=== PATIENT | male | born 1960 | race Caucasian/White ===

== ENCOUNTER → 2016-07-05 | Outpatient (CLI) | payer OTHER, MEDICARE, BC ==
[~2016-07-05] MED LIST: B COTAB3 PO; CARV6.25 PO; FISHOIL PO; LISIPOW PO; METFPOW8 PO; PRAV10 PO; VITA400C28 PO
[2016-07-05 12:06] LABS: AUTOMATED NEUTROPHIL # 4.8 TH/MM3 (1.8-7.7); BASOPHIL % 0.3 % (0.0-2.0); EOSINOPHIL # 0.1 TH/MM3 (0-0.4); EOSINOPHIL % 1.2 % (0.0-4.0); HEMATOCRIT 32.9 % (39.0-51.0); HEMO FLAGS DIFF FINAL; LYMPH % 22.7 % (9.0-44.0); LYMPHOCYTE # 1.6 TH/MM3 (1.0-4.8); MEAN CELL VOLUME 90.5 FL (80.0-100.0); MEAN CORPUSCULAR HEMOGLOBIN 31.2 PG (27.0-34.0); MEAN CORPUSCULAR HGB CONC 34.4 % (32.0-36.0); MONO % 7.7 % (0.0-8.0); NEUT % 68.1 % (16.0-70.0); PLATELET COUNT 238 TH/MM3 (150-450); RED BLOOD COUNT 3.64 MIL/MM3 (4.50-5.90); RED CELL DISTRIBUTION WIDTH 13.9 % (11.6-17.2); WHITE BLOOD COUNT 7.1 TH/MM3 (4.0-11.0)
[2016-07-05 12:19] LABS: BACTERIA, URINE RARE /hpf; BLOOD, URINE NEG (NEG); GLUCOSE,URINE NEG (NEG); KETONE, URINE NEG (NEG); MUCUS URINE FEW /lpf (OCC); NITRITE,URINE NEG (NEG); SQUAMOUS EPITHELIAL CELL URINE <1 /hpf (0-5); TRANSITIONAL EPI CELLS, URINE <1 /hpf; URINE COLOR YELLOW (YELLW/STRAW)
[2016-07-05 12:28] LABS: ANION GAP 9 MEQ/L (5-15); AST (GOT) 9 U/L (15-37); BICARBONATE 29.1 MEQ/L (21.0-32.0); BLOOD UREA NITROGEN 13 MG/DL (7-18); CHLORIDE 106 MEQ/L (98-107); GLOMERULAR FILTRATION RATE 73 ML/MIN (>89); GLUCOSE,FASTING 132 MG/DL (74-99); MAGNESIUM 1.4 MG/DL (1.5-2.5); POTASSIUM 3.4 MEQ/L (3.5-5.1); SODIUM (NA) 144 MEQ/L (136-145); URIC ACID 5.4 MG/DL (2.6-7.2)
[2016-07-05 12:31] LABS: MICRO ALBUMIN RANDOM URINE RAW 81.6 MG/L (0.0-30.0)
[2016-07-05 12:54] LABS: ALKALINE PHOSPHATASE 66 U/L (45-117); ALT (GPT) 15 U/L (12-78); FERRITIN 6 NG/ML (26-388); HDL CHOLESTEROL 38.1 MG/DL (40.0-60.0); LDL CHOLESTEROL 37 MG/DL (0-99); TOTAL BILIRUBIN ADULT 0.6 MG/DL (0.2-1.0); TRANSFERRIN IRON PROFILE 319 MG/DL (200-360)
[2016-07-05 13:03] LABS: CREATINE KINASE 51 U/L (39-308)
[2016-07-06 12:59] LABS: HEMOGLOBIN A1a 1.1 %; HEMOGLOBIN A1b 0.9 %; HEMOGLOBIN Ao 84.9 %; HEMOGLOBIN F 1.1 %; HEMOGLOBIN LA1C 2.1 %; HEMOGLOBIN P3 3.6 %
== END ==
LOC: CLAB 11:27
PROVIDERS: ATTEND Family Medicine
DX: E78.2 Mixed hyperlipidemia (principal); E52 Niacin deficiency [pellagra]; D64.9 Anemia, unspecified; E53.8 Deficiency of other specified B group vitamins; N40.1 Benign prostatic hyperplasia with lower urinary tract symptoms; I10 Essential (primary) hypertension; E55.9 Vitamin D deficiency, unspecified; E11.40 Type 2 diabetes mellitus with diabetic neuropathy, unspecified; K21.0 Gastro-esophageal reflux disease with esophagitis; J44.9 Chronic obstructive pulmonary disease, unspecified; R94.5 Abnormal results of liver function studies
CPT/HCPCS: 36415; 80053; 80061; 81001; 82043; 82306; 82550; 82607; 82728; 82746; 83036; 83540; 83550; 83735; 84153; 84402; 84403; 84443; 84550; 85025; 87086

== ENCOUNTER → 2016-09-22 | Outpatient (CLI) | payer OTHER, MEDICARE, BC | LOC: CLAB 10:06 | PROVIDERS: ATTEND Urology | DX: R97.20 Elevated prostate specific antigen [PSA] (principal) | CPT/HCPCS: 36415; 84153 ==

== ENCOUNTER → 2016-12-30 | Outpatient (CLI) | payer OTHER, MEDICARE, BC ==
[2016-12-30 11:02] LABS: BLOOD, URINE NEG (NEG); GLUCOSE,URINE NEG (NEG); KETONE, URINE NEG (NEG); MUCUS URINE FEW /lpf (OCC); NITRITE,URINE NEG (NEG); PH, URINE 5.5 (5.0-8.5); SQUAMOUS EPITHELIAL CELL URINE <1 /hpf (0-5); URINE COLOR YELLOW (YELLW/STRAW)
[2016-12-30 11:02] LABS: AUTOMATED NEUTROPHIL # 5.7 TH/MM3 (1.8-7.7); BASOPHIL % 0.3 % (0.0-2.0); EOSINOPHIL # 0.1 TH/MM3 (0-0.4); EOSINOPHIL % 0.9 % (0.0-4.0); HEMATOCRIT 35.7 % (39.0-51.0); HEMO FLAGS DIFF FINAL; LYMPH % 21.4 % (9.0-44.0); LYMPHOCYTE # 1.7 TH/MM3 (1.0-4.8); MEAN CORPUSCULAR HEMOGLOBIN 32.3 PG (27.0-34.0); MEAN CORPUSCULAR HGB CONC 34.8 % (32.0-36.0); MONO % 7.3 % (0.0-8.0); NEUT % 70.1 % (16.0-70.0); PLATELET COUNT 225 TH/MM3 (150-450); RED BLOOD COUNT 3.84 MIL/MM3 (4.50-5.90); RED CELL DISTRIBUTION WIDTH 13.8 % (11.6-17.2)
[2016-12-30 11:16] LABS: ANION GAP 9 MEQ/L (5-15); AST (GOT) 12 U/L (15-37); BICARBONATE 24.5 MEQ/L (21.0-32.0); BLOOD UREA NITROGEN 13 MG/DL (7-18); CHLORIDE 108 MEQ/L (98-107); GLOMERULAR FILTRATION RATE 85 ML/MIN (>89); GLUCOSE,FASTING 128 MG/DL (74-99); MAGNESIUM 1.3 MG/DL (1.5-2.5); POTASSIUM 3.7 MEQ/L (3.5-5.1); SODIUM (NA) 141 MEQ/L (136-145); URIC ACID 6.1 MG/DL (2.6-7.2)
[2016-12-30 11:45] LABS: ALKALINE PHOSPHATASE 76 U/L (45-117); ALT (GPT) 18 U/L (12-78); CREATINE KINASE 71 U/L (39-308); FERRITIN 42 NG/ML (26-388); HDL CHOLESTEROL 34.1 MG/DL (40.0-60.0); LDL CHOLESTEROL 44 MG/DL (0-99); TOTAL BILIRUBIN ADULT 0.8 MG/DL (0.2-1.0); TRANSFERRIN IRON PROFILE 238 MG/DL (200-360)
[2016-12-30 18:12] LABS: HEMOGLOBIN A1a 1.1 %; HEMOGLOBIN Ao 84.3 %; HEMOGLOBIN F 1.2 %; HEMOGLOBIN LA1C 2.1 %; HEMOGLOBIN P3 3.7 %
== END ==
LOC: CLAB 10:04
PROVIDERS: ATTEND Family Medicine
DX: J44.9 Chronic obstructive pulmonary disease, unspecified (principal); D64.9 Anemia, unspecified; E53.8 Deficiency of other specified B group vitamins; N40.1 Benign prostatic hyperplasia with lower urinary tract symptoms; I10 Essential (primary) hypertension; E55.9 Vitamin D deficiency, unspecified; E78.2 Mixed hyperlipidemia; E11.40 Type 2 diabetes mellitus with diabetic neuropathy, unspecified; K21.0 Gastro-esophageal reflux disease with esophagitis; R94.5 Abnormal results of liver function studies
CPT/HCPCS: 36415; 80053; 80061; 81001; 82043; 82306; 82550; 82607; 82728; 82746; 83036; 83540; 83550; 83735; 84153; 84402; 84403; 84410; 84443; 84550; 85025; 87086

== ENCOUNTER → 2017-01-11 | Outpatient (CLI) | payer OTHER, MEDICARE, BC ==
[2017-01-12 06:44] LABS: FREE PSA/PSA RATIO 0.24 ratio (())
== END ==
LOC: CLAB 10:25
PROVIDERS: ATTEND Urology
DX: R97.20 Elevated prostate specific antigen [PSA] (principal)
CPT/HCPCS: 36415; 84153; 84154

== ENCOUNTER → 2017-05-17 | Outpatient (CLI) | payer OTHER, MEDICARE, BC ==
[2017-05-17 10:11] LABS: BLOOD, URINE NEG (NEG); GLUCOSE,URINE NEG (NEG); KETONE, URINE NEG (NEG); MUCUS URINE FEW /lpf (OCC); NITRITE,URINE NEG (NEG); URINE COLOR YELLOW (YELLW/STRAW)
[2017-05-17 10:13] LABS: AUTOMATED NEUTROPHIL # 7.5 TH/MM3 (1.8-7.7); BASOPHIL % 0.3 % (0.0-2.0); EOSINOPHIL # 0.1 TH/MM3 (0-0.4); EOSINOPHIL % 0.9 % (0.0-4.0); HEMATOCRIT 37.2 % (39.0-51.0); HEMO FLAGS DIFF FINAL; LYMPH % 17.7 % (9.0-44.0); LYMPHOCYTE # 1.8 TH/MM3 (1.0-4.8); MEAN CELL VOLUME 93.8 FL (80.0-100.0); MEAN CORPUSCULAR HEMOGLOBIN 33.1 PG (27.0-34.0); MEAN CORPUSCULAR HGB CONC 35.3 % (32.0-36.0); NEUT % 75.1 % (16.0-70.0); PLATELET COUNT 226 TH/MM3 (150-450); RED BLOOD COUNT 3.97 MIL/MM3 (4.50-5.90); RED CELL DISTRIBUTION WIDTH 13.9 % (11.6-17.2); WHITE BLOOD COUNT 10.1 TH/MM3 (4.0-11.0)
[2017-05-17 10:31] LABS: MICRO ALBUMIN RANDOM URINE RAW 27.9 MG/L (0.0-30.0)
[2017-05-17 10:31] LABS: ANION GAP 3 MEQ/L (5-15); AST (GOT) 10 U/L (15-37); BICARBONATE 33.7 MEQ/L (21.0-32.0); BLOOD UREA NITROGEN 10 MG/DL (7-18); CHLORIDE 103 MEQ/L (98-107); GLOMERULAR FILTRATION RATE 82 ML/MIN (>89); GLUCOSE,FASTING 145 MG/DL (74-99); MAGNESIUM 1.3 MG/DL (1.5-2.5); POTASSIUM 3.4 MEQ/L (3.5-5.1); SODIUM (NA) 140 MEQ/L (136-145)
[2017-05-17 10:57] LABS: ALKALINE PHOSPHATASE 79 U/L (45-117); ALT (GPT) 16 U/L (12-78); CREATINE KINASE 106 U/L (39-308); FERRITIN 35 NG/ML (26-388); HDL CHOLESTEROL 42.1 MG/DL (40.0-60.0); LDL CHOLESTEROL 45 MG/DL (0-99); TOTAL BILIRUBIN ADULT 0.8 MG/DL (0.2-1.0); TRANSFERRIN IRON PROFILE 269 MG/DL (200-360)
[2017-05-17 13:35] LABS: HEMOGLOBIN A1a 1.1 %; HEMOGLOBIN A1b 0.9 %; HEMOGLOBIN Ao 84.8 %; HEMOGLOBIN F 1.2 %; HEMOGLOBIN LA1C 2.4 %; HEMOGLOBIN P3 3.7 %
== END ==
LOC: CLAB 09:31
PROVIDERS: ATTEND Family Medicine
DX: E78.2 Mixed hyperlipidemia (principal); I10 Essential (primary) hypertension; E55.9 Vitamin D deficiency, unspecified; E11.40 Type 2 diabetes mellitus with diabetic neuropathy, unspecified; K21.0 Gastro-esophageal reflux disease with esophagitis; J44.9 Chronic obstructive pulmonary disease, unspecified; R94.5 Abnormal results of liver function studies; D64.9 Anemia, unspecified; E53.8 Deficiency of other specified B group vitamins; N40.1 Benign prostatic hyperplasia with lower urinary tract symptoms
CPT/HCPCS: 36415; 80053; 80061; 81001; 82043; 82306; 82550; 82607; 82728; 82746; 83036; 83540; 83550; 83735; 84153; 84403; 84410; 84443; 84550; 85025; 87086

== ENCOUNTER → 2017-07-20 | Outpatient (CLI) | payer OTHER, MEDICARE, BC ==
[2017-07-21 04:46] LABS: FREE PSA/PSA RATIO 0.26 ratio; PSA, FREE 1.4 ng/mL
== END ==
LOC: CLAB 10:31
PROVIDERS: ATTEND Urology
DX: R97.20 Elevated prostate specific antigen [PSA] (principal)
CPT/HCPCS: 36415; 84153; 84154

== ENCOUNTER → 2017-11-11 | Outpatient (CLI) | payer OTHER, MEDICARE, BC ==
[~2017-11-11] VITALS: Ht 188 cm; Wt 98.8 kg
[~2017-11-11] MED LIST changes: +ALOG25TA2 PO; +ATOR80TA45 PO; -B COTAB3 PO; +CARV12.52 PO; +CARV25TA PO; -CARV6.25 PO; +CHLORHEXIDINE GLUCONATE 2 % 1 PACK (2 CLOTHS) TOPICAL PRN; +FERR325T18 PO; -FISHOIL PO; +FOLI1TAB6 PO; +HYDR-3288 PO; +LACTATED RINGER'S 1000 ML IV PRN; +LIDOCAINE HCL 1% PF 5 ML SYRINGE OTHER ONE; +LISI20TA PO; -LISIPOW PO; +METF1000 PO; -METFPOW8 PO; +METOPROLOL TARTRATE 25 MG TAB PO PRN; +OMEP20TA93 PO; +POVIDONE IODINE 5% (ANTISEPSIS KIT) 4 APPLICATIONS EACH NARE PRN; -PRAV10 PO; +PROPOFOL 200 MG/20 ML AMP IV ONE; +SODIUM CHLORID 0.9% 500 ML IV PRN; -VITA400C28 PO; +VITA500012 PO
[2017-11-11 13:58] VITALS: BP 121/58; PULSE 67; RESP 16; TEMP 97; O2SAT 97
--- NOTE | 2017-11-11 14:24 | MR ---
cc: Alex Haynes MD DATE: 11/11/2017 DATE OF : 1960 PROCEDURE PERFORMED: Colonoscopy with polypectomy. INDICATIONS FOR PROCEDURE: The patient with change in bowel pattern, alternating stools constipation and diarrhea. History of colon polyps. Occasional blood per rectum. Colonoscopy being performed to rule out any pathology and for screening purposes. Photographs were taken. One lesion was biopsied off and removed. MEDICATIONS: Administered by Anesthesiology. MONITORING: Monitoring was accomplished with pulse oximetry, EKG and blood pressure monitor. PROCEDURE NOTE: After informed consent was obtained and the procedure, risks and benefits were explained, including the risks of bleeding, sepsis, perforation and risks of anesthesia, the patient was placed in left lateral position. Video colonoscope was inserted into the rectum, passed to the cecum in the usual fashion. The prep was adequate to identify polyps as small as 6 mm. There was some residual stool throughout. Smaller lesions could be missed. The cecum and ascending colon were unremarkable. Transverse colon was unremarkable as well. In the distal transverse colon, splenic flexure region, a 5 mm raised area was biopsied off and removed. This was a possible small polyp. In the descending sigmoid colon, scattered diverticulosis was noted with small and medium-sized diverticulum. No other space occupying lesions were appreciated. In the rectum the scope was retroflexed and grade 1 to her early grade 2 internal hemorrhoids were noted without active bleeding. The patient tolerated the procedure well. No immediate complications were noted. He was sent to the recovery room in stable condition. IMPRESSION: 1. Diverticular disease of descending and sigmoid colon. 2. Internal hemorrhoids probably responsible for the patient's blood per rectum. 3. A small polyp biopsied off and removed, as outlined above. 4. The patient also did have external anal tags as well noted. RECOMMENDATIONS: 1. Followup the pathology of the lesion obtained today. 2. Recommend high-fiber diet. 3. Recommend Analpram as needed for internal hemorrhoids. 4. Followup clinically as an outpatient. MD MONICA Ndiaye/LISA , 01:38 PM , 02:23 PM
--- NOTE | 2017-11-11 15:20 | EKG ---
Date Performed: 11/11/2017 Time Performed: 11:54:19 PTAGE: 57 years EKG: Sinus rhythm WITH MARKED SINUS ARRHYTHMIA BORDERLINE ECG NO PREVIOUS TRACING DOCTOR: Tyrell Traylor Interpretating Date/Time 11/11/2017 15:20:07
== END ==
LOC: HEND 11:04
PROVIDERS: ATTEND Internal Medicine Gastroenterology
DX: D12.3 Benign neoplasm of transverse colon (principal); K59.00 Constipation, unspecified; R19.7 Diarrhea, unspecified; K64.0 First degree hemorrhoids; K64.1 Second degree hemorrhoids; K57.30 Diverticulosis of large intestine without perforation or abscess without bleeding; K64.4 Residual hemorrhoidal skin tags; Z01.810 Encounter for preprocedural cardiovascular examination
CPT/HCPCS: 88305; 93005

== ENCOUNTER → 2017-11-28 | Outpatient (CLI) | payer OTHER, MEDICARE, BC ==
[~2017-11-28] MED LIST changes: -CARV12.52 PO; -CHLORHEXIDINE GLUCONATE 2 % 1 PACK (2 CLOTHS) TOPICAL PRN; -LACTATED RINGER'S 1000 ML IV PRN; -LIDOCAINE HCL 1% PF 5 ML SYRINGE OTHER ONE; -METOPROLOL TARTRATE 25 MG TAB PO PRN; -POVIDONE IODINE 5% (ANTISEPSIS KIT) 4 APPLICATIONS EACH NARE PRN; -PROPOFOL 200 MG/20 ML AMP IV ONE; -SODIUM CHLORID 0.9% 500 ML IV PRN
[2017-11-28 10:13] LABS: AUTOMATED NEUTROPHIL # 5.6 TH/MM3 (1.8-7.7); BASOPHIL % 0.6 % (0.0-2.0); EOSINOPHIL # 0.1 TH/MM3 (0-0.4); EOSINOPHIL % 1.1 % (0.0-4.0); HEMATOCRIT 36.5 % (39.0-51.0); HEMOGLOBIN 12.5 GM/DL (13.0-17.0); LYMPH % 22.4 % (9.0-44.0); LYMPHOCYTE # 1.8 TH/MM3 (1.0-4.8); MEAN CELL VOLUME 93.3 FL (80.0-100.0); MEAN CORPUSCULAR HGB CONC 34.3 % (32.0-36.0); MEAN PLATELET VOLUME 8.4 FL (7.0-11.0); MONO % 7.7 % (0.0-8.0); MONOCYTE # 0.6 TH/MM3 (0-0.9); NEUT % 68.2 % (16.0-70.0); PLATELET COUNT 254 TH/MM3 (150-450); RED BLOOD COUNT 3.91 MIL/MM3 (4.50-5.90); RED CELL DISTRIBUTION WIDTH 13.6 % (11.6-17.2); WHITE BLOOD COUNT 8.2 TH/MM3 (4.0-11.0)
[2017-11-28 10:24] LABS: BILIRUBIN, URINE NEG (NEG); BLOOD, URINE NEG (NEG); GLUCOSE,URINE NEG (NEG); KETONE, URINE NEG (NEG); MUCUS URINE FEW /lpf (OCC); NITRITE,URINE NEG (NEG); URINE COLOR YELLOW (YELLW/STRAW); URINE LEUKOCYTE ESTERASE TRACE (NEG)
[2017-11-28 10:52] LABS: AST (GOT) 15 U/L (15-37); BICARBONATE 27.6 MEQ/L (21.0-32.0); BLOOD UREA NITROGEN 18 MG/DL (7-18); CALCIUM 8.7 MG/DL (8.5-10.1); CHLORIDE 102 MEQ/L (98-107); CHOLESTEROL 95 MG/DL (120-200); CREATININE 1.33 MG/DL (0.60-1.30); GLOMERULAR FILTRATION RATE 55 ML/MIN (>89); GLUCOSE,FASTING 132 MG/DL (74-99); MAGNESIUM 1.4 MG/DL (1.5-2.5); SODIUM (NA) 140 MEQ/L (136-145); TRIGLYCERIDES 84 MG/DL (42-150)
[2017-11-28 11:23] LABS: % SATURATION IRON PROFILE 20.5 % (20-50); ALKALINE PHOSPHATASE 83 U/L (45-117); ALT (GPT) 20 U/L (12-78); CHOLESTEROL/ HDL RATIO 2.64 RATIO; FERRITIN 80 NG/ML (26-388); HDL CHOLESTEROL 35.9 MG/DL (40.0-60.0); IRON (FE) 69 MCG/DL (65-175); LDL CHOLESTEROL 42 MG/DL (0-99); TOTAL BILIRUBIN ADULT 0.6 MG/DL (0.2-1.0); TOTAL IRON BINDING CAPACITY 336 MCG/DL (250-450); TOTAL PROTEIN 7.4 GM/DL (6.4-8.2)
[2017-11-28 11:24] LABS: FOLATE GREATER THAN 20.0 NG/ML (3.1-17.5)
[2017-11-28 16:42] LABS: HEMOGLOBIN A1C 5.9 % (4.3-6.0)
== END ==
LOC: CLAB 09:39
PROVIDERS: ATTEND Family Medicine
DX: E55.9 Vitamin D deficiency, unspecified (principal); I10 Essential (primary) hypertension; E78.2 Mixed hyperlipidemia; E11.40 Type 2 diabetes mellitus with diabetic neuropathy, unspecified; K21.0 Gastro-esophageal reflux disease with esophagitis; J44.9 Chronic obstructive pulmonary disease, unspecified; R94.5 Abnormal results of liver function studies; D64.9 Anemia, unspecified; E53.8 Deficiency of other specified B group vitamins; N40.1 Benign prostatic hyperplasia with lower urinary tract symptoms; R97.20 Elevated prostate specific antigen [PSA]; C43.9 Malignant melanoma of skin, unspecified
CPT/HCPCS: 36415; 80053; 80061; 81001; 82043; 82306; 82550; 82607; 82728; 82746; 83036; 83540; 83550; 83735; 84153; 84154; 84403; 84410; 84443; 84550; 85025; 87086